=== PATIENT | male | born 1965 | race Caucasian/White ===

== ENCOUNTER 2020-07-14 11:48 | Emergency (ER) | payer OTHER ==
[2020-07-14 13:46] LABS: Absolute Lymphocytes (CBC) 1.9 K/uL (0.7-4.9); Basophils % 0.6 % (0-1.3); Hematocrit 46.4 % (39.6-49.0); Lymphocytes % 21.9 % (15.3-44.8); MPV 8.3 fL (7.6-11.3); RBC Red Blood Cell Count 5.34 M/uL (4.33-5.43)
[2020-07-14] MEDS ORDERED: NA CHLORIDE 0.9% 1,000 ML ONE (13:51)
[2020-07-14] MEDS ORDERED: MECLIZINE HCL 12.5 MG TAB ONE (13:51)
--- NOTE | 2020-07-14 14:06 | RAD REPORT ---
EXAM DESCRIPTION: CT - [id number] - 07/14/2020 1:53 pm CLINICAL HISTORY: Trauma, head and neck injury. dizzy;Pain COMPARISON: No comparisons TECHNIQUE: Axial 5 mm thick images of the head were obtained. Axial 2 mm thick images of the cervical spine were obtained with sagittal and coronal reconstruction images generated and reviewed. All CT scans are performed using dose optimization technique as appropriate and may include automated exposure control or mA/KV adjustment according to patient size. FINDINGS: CT HEAD WITHOUT CONTRAST: No acute hemorrhage, hydrocephalus or extra-axial collection is identified.No areas of brain edema or midline shift. The paranasal sinuses and mastoids are clear.The calvarium is intact. CT CERVICAL SPINE WITHOUT CONTRAST: No fracture or subluxation.Mild spondylosis is present at C6-7 and C7-T1.No prevertebral soft tissues swelling is identified. IMPRESSION: No acute intracranial or cervical spine findings.
[2020-07-14 14:07] LABS: Albumin 3.9 g/dL (3.4-5.0); Bilirubin Direct 0.1 mg/dL (0-0.2); Bilirubin Total 0.4 mg/dL (0.2-1.0); Protein, Total 7.9 g/dL (6.4-8.2)
--- NOTE | 2020-07-14 15:14 | EDPHYS ---
Physician Documentation [facility] Name: Jacek Lebron Age: 54 yrs Sex: Male : 1965 Arrival Date: 07/14/2020 Time: 11:50 Bed 20 Private MD: ED Physician Jose Cruz Mathis HPI: 07/14 14:10 This 54 yrs old Male presents to ER via Ambulatory with complaints of jr8 Dizziness. 14:10 The patient presents with dizziness. Onset: The symptoms/episode began/occurred jr8 suddenly. Context: occurred at home, occurred while the patient was asleep, at rest, just prior to the episode the patient experienced no apparent symptoms. Modifying factors: The symptoms are alleviated by nothing, the symptoms are aggravated by movement of head, standing up, changing position. Associated signs and symptoms: Pertinent positives: nausea. Severity of symptoms: At their worst the symptoms were moderate in the emergency department the symptoms have improved mildly. Patient's baseline: Neuro: alert and fully oriented, Motor: no deficits, Ambulation: walks without assistance, Speech: normal. The patient has not experienced similar symptoms in the past. The patient has not recently seen a physician. Historical: - Allergies: 12:14 No Known Allergies; ca1 - Home Meds: 12:14 None [Active]; ca1 - PMHx: 12:14 Hypertension; ca1 - PSHx: 12:14 Appendectomy; ca1 - Immunization history:: Adult Immunizations up to date, Flu vaccine is not up to date. - Social history:: Smoking status: Patient denies any tobacco usage or history of. ROS: 14:10 Eyes: Negative for injury, pain, redness, and discharge, ENT: Negative for injury, jr8 pain, and discharge, Neck: Negative for injury, pain, and swelling, Cardiovascular: Negative for chest pain, palpitations, and edema, Respiratory: Negative for shortness of breath, cough, wheezing, and pleuritic chest pain, Back: Negative for injury and pain, MS/Extremity: Negative for injury and deformity, Skin: Negative for injury, rash, and discoloration. 14:10 Abdomen/GI: Positive for nausea, Negative for abdominal pain, vomiting, diarrhea, constipation, abdominal cramps, abdominal distension. 14:10 Neuro: Positive for dizziness. Exam: 14:10 Eyes: Pupils equal round and reactive to light, extra-ocular motions intact. Lids and jr8 lashes normal. Conjunctiva and sclera are non-icteric and not injected. Cornea within normal limits. Periorbital areas with no swelling, redness, or edema. ENT: Nares patent. No nasal discharge, no septal abnormalities noted. Tympanic membranes are normal and external auditory canals are clear. Oropharynx with no redness, swelling, or masses, exudates, or evidence of obstruction, uvula midline. Mucous membranes moist. Neck: Trachea midline, no thyromegaly or masses palpated, and no cervical lymphadenopathy. Supple, full range of motion without nuchal rigidity, or vertebral point tenderness. No Meningismus. Cardiovascular: Regular rate and rhythm with a normal S1 and S2. No gallops, murmurs, or rubs. Normal PMI, no JVD. No pulse deficits. Respiratory: Lungs have equal breath sounds bilaterally, clear to auscultation and percussion. No rales, rhonchi or wheezes noted. No increased work of breathing, no retractions or nasal flaring. Abdomen/GI: Soft, non-tender, with normal bowel sounds. No distension or tympany. No guarding or rebound. No evidence of tenderness throughout. Back: No spinal tenderness. No costovertebral tenderness. Full range of motion. Skin: Warm, dry with normal turgor. Normal color with no rashes, no lesions, and no evidence of cellulitis. MS/ Extremity: Pulses equal, no cyanosis. Neurovascular intact. Full, normal range of motion. 14:10 Neuro: Orientation: to person, place \T\ time. Mentation: is normal, Memory: is normal, immediate memory is intact, recent memory is intact, remote memory is intact, Cranial nerves: CN I not tested, CN II- XII are normal as tested, extraocular movements are intact, Facial palsy and sensory deficits are absent. Nystagmus is absent. Speech is clear and appropriate. Tongue strength is normal, Cerebellar function: normal finger to nose testing, heel to nunn testing is normal, able to perform alternating rapid hand movements, Motor: moves all fours, strength is 5/5 in all extremities, Sensation: no obvious gross deficits, seizure activity, is not displayed by the patient, Abnormal movements: there are no abnormal movements. Vital Signs: 12:10 BP 128 / 87; Pulse 87; Resp 16 S; Temp 97.6(TE); Pulse Ox 99% on R/A; Weight 122.47 kg ca1 (R); Height 6 ft. 0 in. (182.88 cm); Pain 0/10; 13:30 BP 136 / 88; Pulse 81; Resp 17; Pulse Ox 99% ; bp 14:30 BP 136 / 84; Pulse 73; Resp 22; Pulse Ox 99% ; bp 12:10 Body Mass Index 36.62 (122.47 kg, 182.88 cm) ca1 MDM: 13:11 Patient medically screened. [facility] 15:12 Data reviewed: vital signs, nurses notes, lab test result(s), EKG, radiologic studies, [facility] CT scan. Data interpreted: Pulse oximetry: on room air is 99 %. Interpretation: normal. Counseling: I had a detailed discussion with the patient and/or guardian regarding: the historical points, exam findings, and any diagnostic results supporting the discharge/admit diagnosis, lab results, radiology results, the need for outpatient follow up, a family practitioner, a neurologist, to return to the emergency department if symptoms worsen or persist or if there are any questions or concerns that arise at home. Response to treatment: the patient's symptoms have markedly improved after treatment. 07/14 13:10 Order name: Basic Metabolic Panel [facility] 07/14 13:10 Order name: CBC with Diff [facility] 07/14 13:10 Order name: Hepatic Function [facility] 07/14 13:52 Order name: CBC with Automated Diff; Complete Time: 13:53 EDMS 07/14 14:08 Order name: Basic Metabolic Panel; Complete Time: 14:10 EDPA 07/14 14:08 Order name: Liver (Hepatic) Function; Complete Time: 14:10 EDPA 07/14 13:10 Order name: IV Saline Lock; Complete Time: 13:42 [facility] 07/14 13:10 Order name: Labs collected and sent; Complete Time: 13:42 [facility] 07/14 13:10 Order name: EKG - Nurse/Tech; Complete Time: 14:30 [facility] 07/14 13:10 Order name: CT Head C Spine [facility] 07/14 14:07 Order name: CT; Complete Time: 14:10 EDMS Administered Medications: 13:30 Drug: NS 0.9% 1000 ml Route: IV; Rate: 125 ml/hr; Site: right wrist; bp 13:30 Drug: Meclizine 25 mg Route: PO; bp 14:30 Follow up: Response: Marked relief of symptoms bp Disposition: 16:19 Co-signature as Attending Physician, Jose Cruz Mathis MD. rn Disposition: 07/14/20 15:14 Discharged to Home. Impression: Benign paroxysmal vertigo, unspecified ear. - Condition is Stable. - Discharge Instructions: Benign Positional Vertigo, Dizziness, Vertigo. - Prescriptions for Meclizine 25 mg Oral Tablet - take 1 tablet by ORAL route every 8 hours As needed; 30 tablet. Valium 2 mg Oral Tablet - take 1 tablet by ORAL route every 8 hours As needed; 20 tablet. - Work release form, Medication Reconciliation Form, Thank You Letter, Antibiotic Education, Prescription Opioid Use form. - Follow up: Christiano Colon MD; When: 2 - 3 days; Reason: Recheck today's complaints, Continuance of care, Re-evaluation by your physician. - Problem is new. - Symptoms have improved. Signatures: Dispatcher [employer] EDPeggy Goss RN RN iw Nieto, Roman, MD MD rn Roszak, Josh, PA PA jr8 Sid Miranda RN RN bp Acob, Cheryl RN JO ca1 Corrections: (The following items were deleted from the chart) 15:59 15:14 07/14/2020 15:14 Discharged to Home. Impression: Benign paroxysmal vertigo, iw unspecified ear. Condition is Stable. Forms are Medication Reconciliation Form, Thank You Letter, Antibiotic Education, Prescription Opioid Use. Follow up: Christiano Colon; When: 2 - 3 days; Reason: Recheck today's complaints, Continuance of care, Re-evaluation by your physician. Problem is new. Symptoms have improved. jr8
--- NOTE | 2020-07-14 15:14 | ER ---
Nurse's Notes [facility] Name: Jacek Lebron Age: 54 yrs Sex: Male : 1965 Arrival Date: 07/14/2020 Time: 11:50 Bed 20 Private MD: Diagnosis: Benign paroxysmal vertigo, unspecified ear Presentation: 07/14 12:10 Chief complaint: Patient states: Dizziness since Tuesday with back neck pain. Tuesday ca1 morning, I can't get out bed, cause even just moving my elbow makes me really dizzy. Dizziness is severe when I change positions, especially from laying down. Coronavirus screen: Client denies travel out of the [place] in the last 14 days. At this time, the client does not indicate any symptoms associated with coronavirus-19. Ebola Screen: Patient negative for fever greater than or equal to 101.5 degrees Fahrenheit, and additional compatible Ebola Virus Disease symptoms Patient denies exposure to infectious person. Patient denies travel to an Ebola-affected area in the 21 days before illness onset. No symptoms or risks identified at this time. Initial Sepsis Screen: Does the patient meet any 2 criteria? No. Patient's initial sepsis screen is negative. Does the patient have a suspected source of infection? No. Patient's initial sepsis screen is negative. Risk Assessment: Do you want to hurt yourself or someone else? Patient reports no desire to harm self or others. Onset of symptoms was July 14, 2020. 12:10 Method Of Arrival: Ambulatory ca1 12:10 Acuity: JULIANO 3 ca1 Triage Assessment: 12:10 General: Appears in no apparent distress. comfortable, Behavior is cooperative, bp appropriate for age, anxious. Pain: Denies pain. EENT: No deficits noted. Neuro: Reports dizziness. Cardiovascular: No deficits noted. Respiratory: No deficits noted. GI: No signs and/or symptoms were reported involving the gastrointestinal system. : No signs and/or symptoms were reported regarding the genitourinary system. Derm: No deficits noted. Musculoskeletal: No deficits noted. Historical: - Allergies: 12:14 No Known Allergies; ca1 - Home Meds: 12:14 None [Active]; ca1 - PMHx: 12:14 Hypertension; ca1 - PSHx: 12:14 Appendectomy; ca1 - Immunization history:: Adult Immunizations up to date, Flu vaccine is not up to date. - Social history:: Smoking status: Patient denies any tobacco usage or history of. Screenin:10 Abuse screen: Denies threats or abuse. Denies injuries from another. Nutritional bp screening: No deficits noted. Tuberculosis screening: No symptoms or risk factors identified. Fall Risk None identified. Assessment: 12:10 General: SEE TRIAGE NOTE. bp 13:30 Reassessment: No changes from previously documented assessment. Patient and/or family bp updated on plan of care and expected duration. Pain level reassessed. Patient is alert, oriented x 3, equal unlabored respirations, skin warm/dry/pink. 14:30 Reassessment: Patient appears in no apparent distress at this time. No changes from bp previously documented assessment. Patient and/or family updated on plan of care and expected duration. Pain level reassessed. Patient is alert, oriented x 3, equal unlabored respirations, skin warm/dry/pink. PT RETURNED FROM CT. ALL CURRENT ORDERS COMPLETED. Vital Signs: 12:10 BP 128 / 87; Pulse 87; Resp 16 S; Temp 97.6(TE); Pulse Ox 99% on R/A; Weight 122.47 kg ca1 (R); Height 6 ft. 0 in. (182.88 cm); Pain 0/10; 13:30 BP 136 / 88; Pulse 81; Resp 17; Pulse Ox 99% ; bp 14:30 BP 136 / 84; Pulse 73; Resp 22; Pulse Ox 99% ; bp 12:10 Body Mass Index 36.62 (122.47 kg, 182.88 cm) ca1 ED Course: 11:50 Patient arrived in ED. as 12:10 Patient has correct armband on for positive identification. Bed in low position. Call bp light in reach. Side rails up X2. 12:13 Triage completed. ca1 12:14 Arm band placed on right wrist. ca1 13:07 Andre Foster PA is PHCP. jr8 13:07 Jose Cruz Mathis MD is Attending Physician. jr8 13:23 Sid Miranda, JO is Primary Nurse. bp 13:30 Inserted saline lock: 20 gauge in right wrist, using aseptic technique. Blood collected.bp 15:13 Christiano Colon MD is Referral Physician. jr8 15:59 No provider procedures requiring assistance completed. IV discontinued, intact, iw bleeding controlled, No redness/swelling at site. Pressure dressing applied. Administered Medications: 13:30 Drug: NS 0.9% 1000 ml Route: IV; Rate: 125 ml/hr; Site: right wrist; bp 13:30 Drug: Meclizine 25 mg Route: PO; bp 14:30 Follow up: Response: Marked relief of symptoms bp Outcome: 15:14 Discharge ordered by MD. forte 15:59 Discharged to home ambulatory. iw 15:59 Condition: good 15:59 Discharge instructions given to patient, Instructed on discharge instructions, follow up and referral plans. medication usage, Demonstrated understanding of instructions, follow-up care, medications, Prescriptions given X 2. 15:59 Patient left the ED. iw Signatures: Sofia Cadena Irene, RN RN iw Andre Foster PA PA jr8 Peltier, Brian, RN RN bp Gertrude Salazar RN RN ca1
[2020-07-15 23:29] VITALS: TEMP 97.6; O2SAT 99
[2020-07-15 23:32] VITALS: BP 136/84
== END 2020-07-14 15:59 | disposition home or self-care (01) ==
LOC: ER 11:48
DX: H81.10 Benign paroxysmal vertigo, unspecified ear (principal); I10 Essential (primary) hypertension
CPT/HCPCS: 93005; 85025; 80048; 36415; 80076; 70450; 72125; 99284; J7030